=== PATIENT | male | born 2000 | race Caucasian/White ===

== ENCOUNTER 2021-04-20 19:06 | Emergency (ER) | payer OTHER ==
[~2021-04-20 19:06] MED LIST: AUGMENTIN 875-1 EACH PO; BACTRIM DS TAB1 EACH PO; KEFLEX500 MG PO; NAPROSYN375 MG PO; PENICILLIN V P250 M1 PO; PERCOCET 5-3251 EACH PO
[2021-04-20] MEDS ORDERED: MUPIROCIN1 GM SC (20:37)
[2021-04-20] MEDS ORDERED: NORCO 5-325 TA1 EACH PO (20:37)
[2021-04-20] MEDS ORDERED: BACTRIM DS TAB1 EACH PO (20:37)
== END 2021-04-20 20:40 | disposition home or self-care (01) ==
LOC: FER 19:06
DX: L03.112 Cellulitis of left axilla (principal); L03.111 Cellulitis of right axilla; L01.00 Impetigo, unspecified
CPT/HCPCS: 99282

== ENCOUNTER 2022-01-14 22:44 | Emergency (ER) | payer OTHER ==
[~2022-01-14 22:44] MED LIST changes: +MUPIROCIN1 GM SC; +NORCO 5-325 TA1 EACH PO
[2022-01-14] MEDS ORDERED: NARCAN4 MG IN (23:48)
== END 2022-01-14 23:55 | disposition home or self-care (01) ==
LOC: FER 22:44
DX: T40.1X1A Poisoning by heroin, accidental (unintentional), initial encounter (principal); J45.909 Unspecified asthma, uncomplicated; F17.200 Nicotine dependence, unspecified, uncomplicated; Z28.310 Unvaccinated for COVID-19
CPT/HCPCS: 99284

== ENCOUNTER 2022-01-24 22:41 | Emergency (ER) | payer OTHER ==
[~2022-01-24 22:41] MED LIST changes: +NARCAN4 MG IN
[2022-01-24 23:49] LABS: BASOPHIL 0.5 % (0-2); EOSINOPHIL 1.6 % (0-5); HCT 44.8 % (42.0-52.0); HGB 14.9 g/dl (13.2-18.0); LYMPHOCYTE 11.8 % (15-48); MCH 29.1 pg (25.0-31.0); MCHC 33.3 g/dL (32.0-36.0); MCV 87.5 fL (78.0-100.0); MONOCYTE 7.8 % (0-12); MPV 9.2 fL (6.0-9.5); NEUTROPHIL 77.9 % (41-80); NRBC 0; PLT 226 K/uL (150-400); RBC 5.12 M/uL (4.70-6.00); RDW 13.1 % (11.5-14.0); WBC 10.8 K/uL (4.0-10.5)
[2022-01-25 00:18] LABS: ALBUMIN 3.5 g/dL (3.4-5.0); ALKALINE PHOSHATASE 84 U/L (46-116); ALT 39 U/L (16-63); AST 35 U/L (15-37); BILIRUBIN - TOTAL 0.3 mg/dL (0.2-1.0); BUN 15 mg/dL (7-18); BUN/CREAT RATIO (CALC) 15.3 RATIO; CHLORIDE 104 mmol/L (98-107); CO2 (BICARBONATE) 30 mmol/L (21-32); CREATININE 0.98 mg/dL (0.67-1.17); GLOBULIN (CALCULATION) 3.2 g/dL; GLUCOSE 93 mg/dL (74-106); POTASSIUM 4.6 mmol/L (3.5-5.1); TOTAL PROTEIN 6.7 g/dL (6.4-8.2)
[2022-01-25 00:24] LABS: ACETAMINOPHEN (TYLENOL) < 2.0 ug/mL (10.0-30.0)
[2022-01-25 00:32] LABS: BILIRUBIN NEGATIVE (NEGATIVE); BLOOD NEGATIVE Ery/uL (NEGATIVE); CLARITY CLEAR (CLEAR); COLOR YELLOW (YELLOW); GLUCOSE (U) NORMAL (NORMAL); LEUKOCYTES NEGATIVE Leu/uL (NEGATIVE); NITRITE NEGATIVE (NEGATIVE); PROTEIN TRACE (LOW) mg/dL (NEGATIVE); SPECIFIC GRAVITY >=1.030 (1.001-1.030); UROBILINOGEN 0.2 mg/dL (0.2-1.0)
[2022-01-25 00:36] LABS: AMPHETAMINES NEGATIVE (NEGATIVE); BARBITURATES NEGATIVE (NEGATIVE); ECSTASY (MDMA) NEGATIVE (NEGATIVE); MARIJUANA (THC) NEGATIVE (NEGATIVE); METHADONE NEGATIVE (NEGATIVE); OPIATES NEGATIVE (NEGATIVE); OXYCODONE NEGATIVE (NEGATIVE)
== END 2022-01-25 00:40 | disposition home or self-care (01) ==
LOC: FER 22:41
PROVIDERS: Internal Medicine
DX: T40.1X1A Poisoning by heroin, accidental (unintentional), initial encounter (principal); R23.4 Changes in skin texture; J45.909 Unspecified asthma, uncomplicated; F17.210 Nicotine dependence, cigarettes, uncomplicated; Z28.310 Unvaccinated for COVID-19
CPT/HCPCS: 36415; 80053; 80305; 81003; 85025; 99284; G0480